=== PATIENT | female | born 1985 | race Caucasian/White ===

== ENCOUNTER 2018-07-09 15:58 | Inpatient (IN) ==
[2018-07-09] MEDS ORDERED: M.V.I.-12 10 ML, FOLIC ACID 1 MG, MAGNESIUM SULFATE 1 GM, THIAMINE 100 MG in NS 1,000 ML IV ONE (16:16)
--- NOTE | 2018-07-09 16:31 | PROVIDER DOCUMENTATION ---
This chart was entered by Roseline Burks Scribe, acting as scribe for Kaveh Block MD. [id number] Abuse/Overdose - General Chief Complaint: Req. Detox Stated Complaint: DETOX Time Seen by Provider: 07/09/18 16:16 Source: patient, other (co worker) Allergies/Adverse Reactions: Allergies Allergy/AdvReac Type Severity Reaction Status Date / Time No Known Allergies Allergy Verified 07/09/18 16:13 - History of Present Illness-Drug/Alcohol Nature of Presenting Problem: 32 yowf presents to the ed with c/o needing to detox from alcohol. pt sts last drink was vodka and was 1 hour [employer]. pt is a/o x3 on exam This episode of drinking or use began:: 4 days ago Severity: reports: moderate Situational problems related to:: reports: other (alcoholic) Psychiatric Complaints: reports: denies symptoms Associated Symptoms: reports: denies symptoms Any injuries associated with this episode of intoxication?: No Similar Symptoms Previously?: Yes (was 65 days sober till 4 days prior) Recently seen or treated by another doctor?: No - Substance Abuse Substance Use: reports: alcohol - Alcohol Abuse Last Drink?: 15:30 Type and amount of last drink?: vodka Usually drinks:: daily Usual alcohol intake amount?: as much as I can get Other alcohols?: reports: N/A - Detox/Hospitalizations Previous detox/rehab admissions?: No Review of Systems - Adult - REVIEW OF SYSTEMS - ADULT Constitutional: reports: no symptoms reported Eyes: denies: blurred vision, double vision Ears, Nose, Mouth & Throat: reports: no symptoms reported Cardiovascular: denies: chest pain, palpitations Respiratory: denies: cough, shortness of breath, wheezing Gastrointestinal: denies: abdominal pain, diarrhea, nausea, vomiting Genitourinary: reports: no symptoms reported Musculoskeletal: denies: back pain, neck pain Integumentary: reports: no symptoms reported Neurological: denies: dizziness/vertigo, headache/migraines Psychiatric: reports: see HPI, alcohol/drug dependence Endocrine: reports: no symptoms reported Hematologic/Lymphatic: reports: no symptoms reported Allergic/Immunologic: reports: no symptoms reported All Other Systems: Reviewed and Negative Past History - Adult - PAST MEDICAL HISTORY-ADULT Review of Records: reports: Nursing Assessment Review, Medications Reviewed Major Childhood Illnesses: reports: denies history Cardiovascular: reports: denies history Respiratory: reports: denies history Gastrointestinal: reports: denies history Obstetrical/Gynecological: reports: denies history Genitourinary: reports: denies history Musculoskeletal: reports: denies history Neurological: reports: denies history Psychiatric: reports: denies history Endocrine/Immune: reports: denies history Other Conditions: reports: denies history - PRIOR SURGERIES/PROCEDURES Surgical/Procedure History: reports: none - IMMUNIZATION STATUS Childhood Immunizations: See Nurse Assessment Flu Vaccine: See Nurse Assessment - FAMILY HISTORY Family History: reviewed, not pertinent - SOCIAL HISTORY Smoking: denies Substance Use: alcohol Alcohol Use Frequency: every day Number of drinks per typical drinking period:: 3-4 drinks Living Situation: family Physical Exam-General - PHYSICAL EXAM-ADULT Initial Vital Signs Reviewed: Yes - CONSTITUTIONAL General Appearance: alert, no apparent distress - EYES Eyes: PERRL/EOMI, pink conjunctivae - HEAD, EARS, NOSE, MOUTH & THROAT HENMT: normocephalic/atraumatic, moist mucous membranes, normal ENT inspection - NECK Neck: non-tender, full range of motion, supple, normal inspection - RESPIRATORY Respiratory: chest non-tender, lungs clear, normal breath sounds - CARDIOVASCULAR Cardiovascular: normal peripheral pulses, regular rate, rhythm - CHEST (BREASTS) Chest/Breast: deferred - GASTROINTESTINAL (ABDOMEN) Abdominal Exam: normal bowel sounds, non tender, soft - GENITOURINARY Female Genitalia/Pelvic Exam: deferred Rectal Exam: deferred Hemoccult Exam: deferred - LYMPHATIC Lymphatic: no adenopathy - MUSCULOSKELETAL Back Exam: normal inspection, no CVA tenderness, no vertebral tenderness Extremity: normal range of motion, non-tender, normal inspection, no pedal edema , no calf tenderness, normal capillary refill, pelvis stable - SKIN Integumentary: normal color, normal turgor, warm/dry - NEUROLOGIC Neurologic: grossly normal - PSYCHIATRIC Psych/Mental Status: normal mood/affect, normal thought content, normal thought process, oriented x 3 Progress - PLAN OF CARE/RESULTS Progress/Plan/Lab Results: Vital Signs - 8 hr 07/09/18 16:08 Temperature 98.5 F Pulse Rate 87 Respiratory Rate 18 Blood Pressure 128/85 O2 Sat by Pulse Oximetry 96 Bedside Urine ED: Urine Bedside Start: 07/09/18 16:22 Freq: ORDERED Status: Active Protocol: Activity Type Activity Date Activity User E-Sign Co-Sign Detail Recorded Client Recorded Date Recorded By Document 07/09/18 16:36 [id number] 07/09/18 16:36 [id number] 07/09/18 16:36 Point of Care [Bedside Point of Care] -Lot # [id number] - Results Negative -Control Line Visible? Yes Laboratory Results - last 24 hr 07/09/18 07/09/18 16:25 16:25 WBC 7.49 RBC 4.67 Hgb 14.1 Hct 39.8 MCV 85.2 MCH 30.2 MCHC 35.4 RDW Std Deviation 12.1 Plt Count 326 MPV 8.5 Immature Gran % (Auto) 0.1 Neut % (Auto) 52.7 Lymph % (Auto) 41.9 Fountain % (Auto) 4.5 Eos % (Auto) 0.1 Baso % (Auto) 0.7 Immature Gran # (Auto) 0.01 Neut # (Auto) 3.94 Lymph # (Auto) 3.14 Fountain # (Auto) 0.34 Eos # (Auto) 0.01 Baso # (Auto) 0.05 Sodium 140 Potassium 4.0 Chloride 100 Carbon Dioxide 20 L Anion Gap 20 BUN 11 Creatinine 0.4 L Estimated GFR/1.73 m2 > 60 BUN/Creatinine Ratio 28 Glucose 89 Calculated Osmolality 278 Calcium 8.8 Total Bilirubin 0.40 AST 25 ALT 16 Alkaline Phosphatase 92 Total Protein 7.8 Albumin 4.6 Globulin 3.0 Albumin/Globulin Ratio 1.0 Orders Category Date Time Status Urine Preg [ED: Urine Bedside] ORDERED Care 07/09/18 16:22 Active ALCOHOL BLOOD Stat Lab 07/09/18 16:25 Received CBC WITH ELECTRONIC DIFF [HEME] Stat Lab 07/09/18 16:25 Completed CMP [COMPREHENSIVE METABOLIC PANEL] [CHEM] Stat Lab 07/09/18 16:25 Completed Mvi [M.v.i.-12] 10 ml Med 07/09/18 16:16 Active Folic Acid 1 mg Magnesium Sulfate 1 gm Thiamine 100 mg 0.9% Sodium Chloride Inj [Ns] 1,000 ml IV NOW 1625 pt sts last drink was vodka 1 hr prior to arriving in ed. [facility] nurse was in the ed and requested that the pt have basic blood work and a banana bag and pt has a bed upstairs in [facility]. pt is a/o x3 and sts was 65 days sober and had a relapse on Saturday. pt is from out of town and has no family here so a coworker is with the pt. pt sts she wants to detox Result Diagrams: 07/09/18 16:25 07/09/18 16:25 Departure - Departure Date of Disposition Decision: 07/09/18 Time of Disposition Decision: 17:03 DIAGNOSIS: Alcohol abuse Disposition: ADMITTED INPATIENT 09 Certified Medical Emergency: Emergent Condition: Stable Referrals and Follow-Ups: None,PCP [Primary Care Provider] - - Critical Care Note This patient required my direct & personal management of CC.: No Attestation - Physician/ UNIQUE Attestation Patient care was provided by Advanced Practice Provider:: No The physician spent face to face time with patient:: Yes Advanced Practice Provider documentation review:: Supervising physician onsite and consulted in the evaluation and care of this patient. The physician did have a face to face encounter with the patient. This chart was documented by the indicated scribe, (Roseline Burks Scribe) and accurately reflects the services I performed and decisions made by me, Kaveh Block MD, as attested by the provider's signature.
[2018-07-09 16:36] LABS: BASO# 0.05 X1000 (0.0-0.2); BASO% 0.7 % (0.0-0.8); EOS# 0.01 X1000 (0.0-0.7); EOS% 0.1 % (0.0-10.0); HEMATOCRIT 39.8 % (37.0-47.0); HEMOGLOBIN 14.1 g/dL (12.0-16.0); IMM GRAN# 0.01 X1000 (0.0-0.04); IMM GRAN% 0.1 % (0.0-0.5); LYMPH# 3.14 X1000 (1.2-3.4); LYMPH% 41.9 % (20.5-51.1); MCH 30.2 PG (27-31); MCHC 35.4 g/dL (33-37); MCV 85.2 FL (81-99); MONO# 0.34 X1000 (0.11-0.59); MONO% 4.5 % (1.7-9.3); MPV 8.5 FL (7.4-10.4); NEUT# 3.94 X1000 (1.4-6.5); NEUT% 52.7 % (42.2-75.2); PLT 326 X1000 (130-400); RBC 4.67 XMIL (4.2-5.4); RDW 12.1 % (11.5-14.5); WBC 7.49 X1000 (4.8-10.8)
[2018-07-09 16:55] LABS: AGAP 20; ALBUMIN 4.6 g/dL (3.5-5.0); ALKALINE PHOSPHATASE 92 U/L (32-104); BUN 11 mg/dL (8-22); CALCIUM 8.8 mg/dL (8.8-10.2); CHLORIDE 100 mmol/L (98-107); COSMO 278; CREATININE 0.4 mg/dL (0.5-0.9); ESTIMATED GFR > 60; GLUCOSE 89 mg/dL (70-104); GOT 25 U/L (10-30); GPT 16 U/L (10-36); SODIUM 140 mmol/L (136-145); TCO2 20 mmol/L (25-35); TOTAL PROTEIN 7.8 g/dL (6.3-8.3)
[2018-07-09] MEDS ORDERED: DESYREL PO PRN (17:34)
[2018-07-09] MEDS ORDERED: MOTRIN PO PRN (17:34)
[2018-07-09] MEDS ORDERED: DULCOLAX PR PRN (17:34)
[2018-07-09] MEDS ORDERED: SEROQUEL PO PRN (17:34)
[2018-07-09] MEDS ORDERED: ATARAX PO PRN (17:34)
[2018-07-09] MEDS ORDERED: SENOKOT PO PRN (17:34)
[2018-07-09] MEDS ORDERED: BENTYL PO PRN (17:34)
[2018-07-09] MEDS ORDERED: PHENOBARBITAL IV PRN (17:34)
[2018-07-09] MEDS ORDERED: ZOFRAN ODT PO PRN (17:34)
[2018-07-09] MEDS ORDERED: TUBERSOL ID ONE ×2 (17:34→19:00)
[2018-07-09] MEDS ORDERED: IMODIUM PO PRN (17:34)
[2018-07-09] MEDS ORDERED: MAALOX PLUS LIQUID PO PRN (17:34)
[2018-07-09] MEDS ORDERED: ZOFRAN IV PRN (17:34)
[2018-07-09] MEDS ORDERED: TYLENOL PO PRN (17:34)
[2018-07-09] MEDS ORDERED: D5W 1,000 ML IV PRN (17:34)
[2018-07-09] MEDS ORDERED: NICODERM PATCH TD PRN (17:34)
[2018-07-09] MEDS ORDERED: ROBAXIN PO PRN (17:34)
[2018-07-09] MEDS: LIBRIUM PO SCH (18:15)
[2018-07-09 19:22] LABS: URINE SOURCE VOIDED
[2018-07-09 19:25] LABS: INR 0.88; PROTIME 12.4 Seconds (11.0-16.0)
[2018-07-09 19:33] LABS: BILIRUBIN URINE NEGATIVE (NEGATIVE); BLOOD URINE NEGATIVE (NEGATIVE); GLUCOSE URINE NEGATIVE (NEGATIVE); KETONE URINE 3+(Large) mg/dL (NEGATIVE); LEUKOCYTES URINE 1+ (NEGATIVE); NITRITE URINE NEGATIVE (NEGATIVE); PROTEIN URINE TRACE mg/dL (NEGATIVE); SP GRAVITY URINE 1.025; UROBILINOGEN URINE NORMAL
[2018-07-09 19:34] LABS: CLARITY VERY CLOUDY (CLEAR); COLOR YELLOW; UR AMPHETAMINES QUAL NONE DETECTED (NONE DETECT); UR BARBITUATES QUAL NONE DETECTED (NONE DETECT); UR BENZODIAZEPIN QUAL NONE DETECTED (NONE DETECT); UR CANNABINOIDS QUAL NONE DETECTED (NONE DETECT); UR COCAINE QUAL NONE DETECTED (NONE DETECT); UR METHADONE QUAL NONE DETECTED (NONE DETECT); UR METHAMPHETAMINE QUAL NONE DETECTED (NONE DETECT); UR OPIATES QUAL NONE DETECTED (NONE DETECT); UR OXYCODONE QUAL NONE DETECTED (NONE DETECT); UR PCP QUAL NONE DETECTED (NONE DETECT); UR PROPOXYPHENE QUAL NONE DETECTED (NONE DETECT); UR TCA QUAL NONE DETECTED (NONE DETECT)
[2018-07-09 19:40] LABS: URINE BACTERIA 3+ /HFP; URINE EPITHELIAL CELLS >10 /HPF (<10); URINE RBC <10 /HPF (<10); URINE WBC <10 /HPF (<10)
--- NOTE | 2018-07-09 19:52 | HISTORY AND PHYSICAL ---
CHIEF COMPLAINT: Nausea and vomiting. HISTORY OF PRESENT ILLNESS: The patient is a 32-year-old female who lives in [place], [place]. She was here on business. For the last couple of days she has staying at a hotel. She has been nauseated, throwing up, having abdominal pain and cramping. She has not really kept anything down orally for the past 2 days or so. Her symptoms continued to worsen, and she finally came to the emergency department noting that she was not going to be able to withstand a flight back home. SOCIAL HISTORY: Patient is single. She lives at home in [place]. She is employed. She is here on business. FAMILY HISTORY: Noncontributory. PAST MEDICAL HISTORY: She has no chronic active medical problems other than alcoholism. She does have a history of anxiety, but does not take any current medications. She has a history of hypertension but is not currently taking medications. MEDICATIONS: Pristiq, gabapentin. REVIEW OF SYSTEMS: Her CIWA score is elevated at 13 secondary to nausea, vomiting, tremors, and decreased oral intake for the past 3 days. She has been lightheaded, fatigued. She has been dizzy when she stands up. Denies any chest pain, palpitations. Does have a history of blackouts secondary to alcoholism and alcohol withdrawal. Denies hematochezia, melena, hematemesis. Denies swelling in her lower extremities. Does have a headache. Denies any blurred vision, change in vision, focalized numbness and weakness. SUBSTANCE ABUSE HISTORY: The patient was an inpatient in January 2018 for 5 days as well as in April 2018. She states she had been sober for 65 days, which is the longest time she has stayed sober. Currently is in treatment by [facility]. She has taken Vivitrol shots. A Vivitrol shot actually is due now. Notes that she has had increased social stress. Mom recently , and Mother's Day became very difficult. She started binge drinking on July 05 and has drunk every day heavily since. Initially started drinking at age 25. Currently has been drinking a fifth a day since July 05. Prior to that was at 65 days sober. Started smoking at 16, currently smokes a pack a day. PHYSICAL EXAMINATION: VITAL SIGNS: Reviewed and stable. GENERAL: She is awake and alert. She is in no current respiratory distress. She is somewhat ill appearing. She is noted to have tremors on exam. She is very weak, unable to sit up. HEENT: Normocephalic. NECK: Supple. CARDIOVASCULAR: Regular rate. CHEST: Clear. ABDOMEN: Soft. EXTREMITIES: Moves all extremities although generalized weakness. NEUROLOGIC: She has no focal neurological changes. Does have tremors visible on exam. ASSESSMENT: 1. Nausea and vomiting with abdominal pain. 2. Myalgias. 3. Paresthesias. 4. Tremors. 5. Paroxysmal sweating. 6. Generalized weakness. 7. Poor oral intake. 8. History of hypertension. 9. Chronic anxiety. 10. Chronic alcoholism with acute exacerbation. PLAN: We will admit patient the hospital and place her on high-dose Librium. We will continue to wean as tolerated. We will use naltrexone until she can get home to repeat her Vivitrol injection. cc: Jimbo Lopez MD
[2018-07-10] MEDS: LIBRIUM PO SCH ×4 (00:14→17:25)
[2018-07-10] MEDS: PROTONIX PO SCH (06:25)
[2018-07-10] MEDS: VITAMIN B-1 PO SCH (10:04)
[2018-07-10] MEDS: THERA M PLUS PO SCH (10:04)
[2018-07-10] MEDS: FOLIC ACID PO SCH (10:04)
--- NOTE | 2018-07-10 22:41 | PROGRESS NOTE ---
DATE: 07/10/2018 SUBJECTIVE: Patient notes that overall she is feeling a little bit better. Denies any fevers or chills. Denies any chest pain, palpitations. OBJECTIVE/PHYSICAL EXAMINATION: Vital Signs: Reviewed. Temp 98.4 degrees, pulse 81, respiratory rate 18, BP 101/63. General: Patient is awake, alert, currently in no distress. Seems a little more oriented today, but still somewhat ill-appearing. HEENT: Normocephalic. Neck: Supple. Cardiovascular: Regular rate. Chest: Clear. Abdomen: Soft. Extremities: Moves all extremities. Neurologic: No changes. ASSESSMENT: 1. Nausea and vomiting. 2. Abdominal pain. 3. Myalgias. 4. Paresthesias. 5. Chronic alcohol use and abuse. PLAN: We will continue patient in hospital. Continue to wean Librium. Continue IV fluids. Hopefully, home over the next 1 to 2 days. cc: Jimbo Lopez MD
[2018-07-11] MEDS: LIBRIUM PO SCH ×2 (00:02→06:20)
[2018-07-11] MEDS: PROTONIX PO SCH (06:20)
[2018-07-11] MEDS ORDERED: PRISTIQ ER PO SCH (09:00)
[2018-07-11] MEDS ORDERED: NEURONTIN PO SCH (09:00)
[2018-07-11] MEDS: FOLIC ACID PO SCH (09:47)
[2018-07-11] MEDS: THERA M PLUS PO SCH (09:47)
[2018-07-11] MEDS: VITAMIN B-1 PO SCH (09:47)
[2018-07-11] MEDS ORDERED: LIBRIUM PO SCH (12:00)
[2018-07-11 13:32] VITALS: BP 126/87
[2018-07-11] MEDS ORDERED: REVIA PO ONE (13:56)
[2018-07-12] MEDS ORDERED: REVIA PO SCH (09:00)
--- NOTE | 2018-07-13 08:55 | DISCHARGE SUMMARY ---
ADMISSION DATE: 07/09/2018 DISCHARGE DATE: 07/11/2018 DISCHARGE DIAGNOSES: 1. Nausea, vomiting. 2. Abdominal pain. 3. Myalgias. 4. Tremors. 5. Paresthesias. 6. Volume depletion. 7. Alcohol abuse, withdrawal and stabilization. CONSULTATIONS: None. PROCEDURES: None. BRIEF HOSPITAL COURSE: The patient is a 32-year-old female who presented to the hospital with nausea, vomiting, abdominal pain, myalgias, tremors, paresthesias and acute alcohol withdrawal. She was admitted to the hospital, placed on high-dose Librium taper, and tolerated well. Librium was weaned down over the next few days. The patient was discharged from the hospital earlier than usual as she needed to catch a flight back to [place]. Patient has a longstanding history of alcoholism and has a support system at home. DISPOSITION: Patient will be discharged home. I discussed with her how to continue to wean Librium at home. Prescription was written as well as for naltrexone. She does take Vivitrol at home, but will not be able to get this shot for close to a week. She will continue Vivitrol until then. I discussed her that she needs a sponsor that she can call when she is out of town in an attempt to prevent further relapsing. Greater than 30 minutes spent in total care. cc: Jimbo Lopez MD
== END 2018-07-11 15:50 | disposition home or self-care (01) | DRG 897 ==
LOC: P.ED 15:58 → P.MEDSURG 17:52
PROVIDERS: ATTEND Family Medicine
CPT/HCPCS: 80053; 80104; 80301; 80305; 80307; 80320; 81001; 81025; 82055; 82150; 83690; 84703; 85025; 85610; 96365; 99284; A9270; G0431; G0434; G0477; G0480; G6040; J3411; J3475; J7030